=== PATIENT | male | born 1980 | race American Indian/Alaskan Native ===

== ENCOUNTER 2017-05-15 06:58 | Emergency (ER) | payer OTHER ==
[2017-05-15 08:14] VITALS: BP 125/78
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
[2017-05-15] MEDS ORDERED: TORADOL IM ONE (08:19)
== END 2017-05-15 08:44 ==
LOC: ED 06:58
DX: H57.11 Ocular pain, right eye (principal); F17.200 Nicotine dependence, unspecified, uncomplicated; V89.2XXA Person injured in unspecified motor-vehicle accident, traffic, initial encounter; Y93.89 Activity, other specified; Y99.8 Other external cause status; Y92.89 Other specified places as the place of occurrence of the external cause
CPT/HCPCS: 96372; 99282; J1885